=== PATIENT | female | born 1995 | race Caucasian/White ===

== ENCOUNTER 2017-05-03 06:03 | Inpatient (IN) ==
[2017-05-03] MEDS: LACTATED RINGERS 1,000 ML IV SCH (06:35)
[2017-05-03] MEDS ORDERED: MEPERIDINE 50 MG/1 ML VIAL IM PRN (06:57)
[2017-05-03] MEDS ORDERED: BUTORPHANOL 2 MG/ML VIAL IV PRN (06:57)
[2017-05-03 07:23] LABS: Basophils % 0.2 % (0.0-0.8); Eosinophils % 0.1 % (0.00-10.9); Hematocrit 31.6 VOL% (35.7-47.0); Hemoglobin 10.5 GM/DL (12.0-16.0); Immature Granulocytes % 0.5 %; Immature Granulocytes Absolute 0.06 #; Lymphocytes # 2.2 10*3/uL (1.4-4.0); Lymphocytes % 18.9 % (21.3-54.2); Mean Corpuscular HGB Conc 33.2 GM/DL (32-36); Mean Corpuscular Hemoglobin 25 PG (27-34); Mean Corpuscular Volume 76.5 FL (87-102); Mean Platelet Volume 9.4 FL (9.6-12.0); Monocytes # 0.5 10*3/uL (0.11-0.8); Monocytes % 4.2 % (1.7-12.7); Neutrophils # 8.7 10*3/uL (1.4-7.4); Neutrophils % 76.1 % (38.7-73.9); Platelet Count 199 T/CUMM (130-400); Red Blood Count 4.13 MC/CUMM (3.8-5.5); Red Cell Distribution Width 14.1 % (9.3-17.3); White Blood Count 11.5 T/CUMM (4-12)
[2017-05-03 07:58] LABS: Albumin 2.6 G/DL (3.4-5.0); Bilirubin,Total 0.4 MG/DL (0.2-1.0); Calcium 8.6 MG/DL (8.5-10.1); Osmolality,Calculated 275.4 MOS/KG (273-304); Potassium 3.7 MMOL/L (3.5-5.1); Total Protein 5.7 G/DL (6.4-8.3)
[2017-05-03] MEDS: ONDANSETRON 4 MG/2 ML VIAL IV PRN (19:41)
[2017-05-04] MEDS ORDERED: MEPERIDINE 50 MG/1 ML VIAL IV PRN (01:20)
[2017-05-04] MEDS: ONDANSETRON 4 MG/2 ML VIAL IV PRN (01:25)
[2017-05-04] MEDS: LACTATED RINGERS 1,000 ML IV SCH ×3 (06:18→19:17)
[2017-05-04] MEDS ORDERED: OXYTOCIN/LR 20 UNIT/1,000 ML BAG IV SCH (15:30)
[2017-05-04] MEDS ORDERED: CITRIC ACID/SODIUM CITRATE 30 ML UDCUP PO ONE (16:19)
[2017-05-04] MEDS ORDERED: LACTATED RINGERS 1,000 ML IV ONE (16:19)
[2017-05-04] MEDS ORDERED: FAMOTIDINE 20 MG/2 ML VIAL IV ONE (16:19)
[2017-05-04] MEDS ORDERED: fentaNYL 2 MCG/ROPIV 0.2% EPID 150 ML EPIDURAL SCH (16:30)
[2017-05-04] MEDS ORDERED: miSOPROStol 200 MCG TABLET ONE ×2 (22:35→23:59)
[2017-05-04] MEDS ORDERED: ePHEDrine 50 MG/ML AMP ONE (22:36)
[2017-05-05] MEDS ORDERED: METHYLERGONOVINE 0.2 MG/1 ML AMP ONE
[2017-05-05] MEDS ORDERED: TRANEXAMIC ACID 1,000 MG/10 ML VIAL IV ONE (00:04)
[2017-05-05] MEDS ORDERED: miSOPROStol 200 MCG TABLET RECTAL ONE (00:10)
[2017-05-05] MEDS ORDERED: CARBOPROST TROMETHAMINE 250 MCG/ML AMP IM ONE ×2 (00:13→01:10)
[2017-05-05] MEDS ORDERED: MEASLES/MUMPS/RUBELLA VACCINE 0.5 ML VIAL SUBCUT ONE (00:25)
[2017-05-05] MEDS ORDERED: WITCH HAZEL PADS 100/JAR TOP PRN (00:25)
[2017-05-05] MEDS ORDERED: RHO(D) IMMUNE GLOBULIN 300 MCG SYRINGE IM ONE (00:25)
[2017-05-05] MEDS ORDERED: LANOLIN 50% CREAM 0.3 OZ TUBE TOP PRN (00:25)
[2017-05-05] MEDS ORDERED: oxyCODONE/ACETAMINOPHEN 5-325 MG TABLET PO PRN (00:25)
[2017-05-05] MEDS ORDERED: OXYTOCIN/LR 20 UNIT/1,000 ML BAG IV ONE (00:25)
[2017-05-05] MEDS ORDERED: BISACODYL 10 MG SUPP RECTAL PRN (00:25)
[2017-05-05] MEDS ORDERED: ACETAMINOPHEN 325 MG TABLET PO PRN (00:25)
[2017-05-05] MEDS ORDERED: HYDROCORTISONE 2.5% RECTAL CREAM 30 GM TUBE TOP PRN (00:25)
[2017-05-05] MEDS ORDERED: ONDANSETRON 4 MG/2 ML VIAL IV PRN (00:25)
[2017-05-05] MEDS ORDERED: BENZOCAINE 20%/MENTHOL 0.5% SPRAY 56 GM CAN TOP PRN (00:25)
[2017-05-05] MEDS ORDERED: DIPH/TET/ACEL PERT BOOSTER VACCINE 0.5 ML VIAL IM ONE (00:25)
[2017-05-05] MEDS: oxyCODONE/ACETAMINOPHEN 5-325 MG TABLET PO PRN ×2 (02:59→15:10)
[2017-05-05 06:22] LABS: Basophils % 0.1 % (0.0-0.8); Hematocrit 31.2 VOL% (35.7-47.0); Hemoglobin 10.4 GM/DL (12.0-16.0); Immature Granulocytes % 0.6 %; Immature Granulocytes Absolute 0.13 #; Lymphocytes # 1.7 10*3/uL (1.4-4.0); Mean Corpuscular HGB Conc 33.3 GM/DL (32-36); Mean Corpuscular Hemoglobin 25 PG (27-34); Mean Corpuscular Volume 76.1 FL (87-102); Mean Platelet Volume 9.6 FL (9.6-12.0); Monocytes # 0.8 10*3/uL (0.11-0.8); Monocytes % 4.1 % (1.7-12.7); Neutrophils # 18.1 10*3/uL (1.4-7.4); Neutrophils % 87.2 % (38.7-73.9); Platelet Count 204 T/CUMM (130-400); Red Cell Distribution Width 14.1 % (9.3-17.3); White Blood Count 20.7 T/CUMM (4-12)
[2017-05-05 06:44] LABS: Giant Platelets Few; Hypochromasia 1+; Lymphocytes 7 % (20-55); Microcytosis Slight; Ovalocytes Slight; Platelet Estimate Adequate; Segmented Neutrophils 92 % (50-85); Total Cells Counted 100
[2017-05-05] MEDS ORDERED: METHYLERGONOVINE 0.2 MG/1 ML AMP IM SCH (08:00)
[2017-05-05] MEDS: DOCUSATE SODIUM 100 MG CAPSULE PO SCH ×2 (09:04→20:16)
[2017-05-05] MEDS: IBUPROFEN 800 MG TABLET PO PRN (15:11)
[2017-05-06] MEDS: IBUPROFEN 800 MG TABLET PO PRN (06:14)
[2017-05-06] MEDS: oxyCODONE/ACETAMINOPHEN 5-325 MG TABLET PO PRN (06:14)
[2017-05-06 08:32] VITALS: BP 95/52
[2017-05-06] MEDS: DOCUSATE SODIUM 100 MG CAPSULE PO SCH (09:02)
== END 2017-05-06 13:00 | disposition home or self-care (01) | DRG 560 ==
LOC: N.LDOUT 06:03 → N.LD 06:05 → N.OB 05-05 02:42
PROVIDERS: ADMIT Obstetrics & Gynecology; ATTEND Obstetrics & Gynecology